=== PATIENT | male | born 1960 | race Caucasian/White ===

== ENCOUNTER 2020-10-06 22:42 | Emergency (ER) | payer OTHER ==
[~2020-10-06 22:42] MED LIST: BENADRYL25 MG PO; LODINE CAP 300300 MG PO; ZOFRAN ODT 4 MG4 MG SL
[2020-10-06 23:17] LABS: HEMOGLOBIN 14.3 gm/dl (14.0-17.5); RED BLOOD COUNT 4.74 M/UL (4.20-5.50); WHITE BLOOD COUNT 8.6 K/UL (4.5-11.0)
[2020-10-06 23:34] LABS: BUN/CREATININE RATIO 16 (0-10)
== END 2020-10-07 01:00 | disposition home or self-care (01) ==
LOC: ER1 22:42
PROVIDERS: Physician Assistant
DX: R10.9 Unspecified abdominal pain (principal); E10.9 Type 1 diabetes mellitus without complications; E07.9 Disorder of thyroid, unspecified; I10 Essential (primary) hypertension; Z87.442 Personal history of urinary calculi
CPT/HCPCS: 80053; 81001; 85025; 87086; 96374; 96375; 99284; J2270; J2405

== ENCOUNTER 2021-08-02 20:09 | Emergency (ER) | payer OTHER ==
[2021-08-02 22:52] LABS: HEMOGLOBIN 13.9 gm/dl (14.0-17.5); RED BLOOD COUNT 4.6 M/UL (4.20-5.50); WHITE BLOOD COUNT 9.1 K/UL (4.5-11.0)
[2021-08-02 23:10] LABS: BUN/CREATININE RATIO 18 (0-10)
[2021-08-03] MEDS ORDERED: ZOFRAN ODT 4 MG4 MG PO (00:48)
[2021-08-03] MEDS ORDERED: PHENERGAN 12.12.5 M1 PO (00:48)
== END 2021-08-03 01:00 | disposition home or self-care (01) ==
LOC: ER1 20:09
PROVIDERS: Physician Assistant
DX: R10.11 Right upper quadrant pain (principal); E11.9 Type 2 diabetes mellitus without complications; R11.0 Nausea; I48.91 Unspecified atrial fibrillation; Z20.822 Contact with and (suspected) exposure to COVID-19; E78.5 Hyperlipidemia, unspecified; I10 Essential (primary) hypertension
CPT/HCPCS: 71045; 80053; 81001; 82550; 82553; 83605; 83690; 83874; 84484; 85025; 86140; 87086; 93005; 96374; 96375; 99284; J2270; J2405; Q9967; U0002

== ENCOUNTER → 2021-08-23 | Outpatient (CLI) | payer OTHER ==
[~2021-08-23] MED LIST changes: +AMITRIPTYLINE H25 MG PO; +AMLODIPINE BESYL5 MG PO; +ASPIRIN EC81 MG PO; +ATORVASTATIN CA40 MG PO; +BASAGLAR K100 UNIT/1 SQ; +FARXIGA10 MG PO; +FISH OIL 1,2001 EAC1 PO; +GLIMEPIRIDE4 MG PO; +JANUMET 50-1,01 EACH PO; +LEVOTHYROXINE125 MC1 PO; +LISINOPRIL40 MG PO; +PHENERGAN 12.12.5 M1 PO; +TYLENOL325 MG PO; +ZOFRAN ODT 4 MG4 MG PO
[2021-08-23 10:04] LABS: BUN/CREATININE RATIO 18 (0-10)
== END ==
LOC: OPSV2 08:00
PROVIDERS: Anesthesiology
DX: Z01.812 Encounter for preprocedural laboratory examination (principal)
CPT/HCPCS: 36415; 80048

== ENCOUNTER → 2021-08-24 | Day surgery (SDC) | payer OTHER | END | disposition home or self-care (01) | LOC: OR 04:48 | DX: K80.10 Calculus of gallbladder with chronic cholecystitis without obstruction (principal); G43.009 Migraine without aura, not intractable, without status migrainosus; E66.9 Obesity, unspecified; Z79.4 Long term (current) use of insulin; Z79.82 Long term (current) use of aspirin; Z79.899 Other long term (current) drug therapy | CPT/HCPCS: 82962; J0690; J1100; J1885; J2001; J2250; J2370; J2405; J2704; J2710; J3010; J7030; J7120 ==

== ENCOUNTER → 2022-01-20 | Outpatient (CLI) | payer OTHER ==
[2022-01-20 14:07] LABS: BUN/CREATININE RATIO 16 (0-10)
[2022-01-21 08:15] LABS: CREATININE, URINE 100.3 mg/dL (Not Estab.)
== END ==
LOC: LAB 13:08
PROVIDERS: Emergency Medicine; Specialist
DX: E11.9 Type 2 diabetes mellitus without complications (principal); E78.5 Hyperlipidemia, unspecified
CPT/HCPCS: 36415; 80053; 80061; 82043; 82570; 83036; 84443